=== PATIENT | male | born 1945 | race Caucasian/White ===

== ENCOUNTER 2017-03-19 11:50 | Emergency (ER) | payer OTHER, MEDICARE, BC ==
[~2017-03-19] VITALS: Ht 172.7 cm; Wt 86.0 kg
[~2017-03-19 11:50] MED LIST: ARTHTAB2 PO; FURO40TA PO; HYDR-3583 PO; LISI40TA PO; METO50TA11 PO; SERT1POW3 PO; SIMV40TA PO
[2017-03-19 11:54] VITALS: BP 174/88; PULSE 60; RESP 15; TEMP 99.4; O2SAT 94
[2017-03-19] MEDS ORDERED: CARV40 PO (12:11)
[2017-03-19] MEDS ORDERED: ROBA750T PO (12:51)
[2017-03-19] MEDS ORDERED: IBUP-232 PO (12:51)
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
== END 2017-03-19 13:05 | disposition home or self-care (01) ==
LOC: PHEFT 11:50
DX: S16.1XXA Strain of muscle, fascia and tendon at neck level, initial encounter (principal); S39.012A Strain of muscle, fascia and tendon of lower back, initial encounter; V89.2XXA Person injured in unspecified motor-vehicle accident, traffic, initial encounter; Y92.410 Unspecified street and highway as the place of occurrence of the external cause
CPT/HCPCS: 99283